=== PATIENT | male | born 1975 | race Two or more races ===

== ENCOUNTER 2025-04-11 15:48 | Emergency (ER) | payer OTHER ==
[~2025-04-11] VITALS: Ht 170.2 cm; Wt 93.6 kg
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
[2025-04-11 16:14] VITALS: BP 148/91; RESP 20; TEMP 97.5; O2SAT 93
[2025-04-11 16:17] LABS: Hematocrit 47.4 % (41.0-53.0); Hemoglobin 17.0 g/dL (13.5-17.5); Mean Corpuscular Hemoglobin 32.3 pg (28.0-32.0); Mean Corpuscular Volume 90.3 fL (80.0-100.0); Nucleated Red Blood Cells % 0.2 %
[2025-04-11 16:24] LABS: Chloride 104 mmol/L (98-107); Sodium 141 mmol/L (136-145)
[2025-04-11 16:25] LABS: Anion Gap 8 (5-15); Carbon Dioxide 29 mmol/L (20-31)
[2025-04-11 16:26] LABS: Calcium 9.6 mg/dL (8.7-10.4)
[2025-04-11 16:30] LABS: BUN/Creatinine Ratio 8.9 (10.0-20.0); Blood Urea Nitrogen 11 mg/dL (9-23); Glucose 145 mg/dL (74-106); Potassium 3.5 mmol/L (3.5-5.1)
[2025-04-11 16:49] VITALS: PULSE 63
--- NOTE | 2025-04-11 17:04 | DVH ---
AP portable chest CLINICAL INDICATION: CP FINDINGS: Heart size is slightly enlarged. Pacer lead in the right ventricle. There is a prosthetic heart valve present. There are no infiltrates or effusions IMPRESSION: 1. No acute cardiopulmonary pathology
--- NOTE | 2025-04-16 13:57 | ECG ---
[facility] Test Date: 2025-04-11 Test Time: 15:49:48 Pat Name: JOSÉ MIGUEL CHAN Department[facility] Patient [facility]: [id number] Room: Gender: M [employer]kes: camelia : 1975 Requested By: CARSON SCHAEFER Order Number: [id number] Reading MD: Josh Lynch Measurements Intervals [place] Rate: 68 P: 25 NM: 381 QRS: 94 QRSD: 102 T: 70 QT: 454 QTc: 483 Interpretive Statements Sinus rhythm Prolonged NM interval Left atrial enlargement Borderline right axis deviation Repol abnrm suggests ischemia, anterolateral Electronically Signed On 04-19-2025 16:24:24 PST by Josh Lynch Please click the below link to view image of tracing.
--- NOTE | 2025-04-19 09:57 | ECG ---
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
== END 2025-04-11 17:21 | disposition left against medical advice (07) ==
LOC: ER 15:48 → EDBD 15:48 → ER 17:21
DX: R07.89 Other chest pain (principal); I10 Essential (primary) hypertension; I16.0 Hypertensive urgency; E11.65 Type 2 diabetes mellitus with hyperglycemia; I24.89 Other forms of acute ischemic heart disease; Z95.1 Presence of aortocoronary bypass graft; Z95.810 Presence of automatic (implantable) cardiac defibrillator; V89.2XXA Person injured in unspecified motor-vehicle accident, traffic, initial encounter; Y93.I9 Activity, other involving external motion; Y92.488 Other paved roadways as the place of occurrence of the external cause; Y99.8 Other external cause status
CPT/HCPCS: 36415; 71045; 80048; 84484; 85025; 93005